=== PATIENT | male | born 1990 | race Caucasian/White ===

== ENCOUNTER 2023-12-04 22:17 | Emergency (ER) | payer OTHER, SELFPAY ==
[2023-12-04 22:20] VITALS: BP 141/101
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
[2023-12-05 00:50] VITALS: BP 127/81
== END 2023-12-05 00:56 | disposition home or self-care (01) ==
LOC: EMR 22:17
PROVIDERS: EMERGENCY PHYSICIAN Emergency Medicine; FAMILY PHYSICIAN Urology
DX: N50.82 Scrotal pain (principal); W50.0XXA Accidental hit or strike by another person, initial encounter; F17.200 Nicotine dependence, unspecified, uncomplicated
CPT/HCPCS: 99284; 76870; 93976; 99285